=== PATIENT | female | born 1950 | race Caucasian/White ===

== ENCOUNTER → 2016-10-17 | Outpatient (CLI) | payer OTHER ==
--- NOTE | 2016-10-17 17:13 | KCIC ---
PROCEDURE Two-view left hip dated 10/17/2016. HISTORY Left hip pain for 2 months. No known injury. TECHNIQUE Two views obtained. COMPARISON None. FINDINGS Bony alignment is anatomic. No displaced fracture. Moderate hypertrophic change of the left hip joint with joint space narrowing. No destructive changes or periostitis. No loose body. IMPRESSION - No acute radiographic abnormality. - Mild to moderate primary left hip degenerative arthrosis. Electronically signed by: Gilmer Pineda (Oct 17, 2016 17:11:52)
== END | disposition home or self-care (01) ==
LOC: KCIC 15:42
PROVIDERS: ATTEND Family Medicine
DX: M25.552 Pain in left hip (principal)
CPT/HCPCS: 73502

== ENCOUNTER → 2016-11-28 | Outpatient (CLI) | payer OTHER ==
[~2016-11-28] MED LIST: ASPI81TA2 PO; FERR-26 PO; MULT1TAB52 PO
[2016-11-28 09:24] LABS: BASO % 0 % (0-3); EOS % 2 % (0-3); HEMATOCRIT 32.7 % (36.0-47.0); HEMOGLOBIN 10.6 g/dL (12.0-15.5); LYMPH # 1.7 x10^3/uL (1.0-4.8); LYMPH % 38 % (24-48); MEAN CORPUSCULAR HEMOGLOBIN 26 pg (25-35); MEAN CORPUSCULAR HGB CONC 32 g/dL (31-37); MEAN CORPUSCULAR VOLUME 79 fL (79-100); MONO % 10 % (0-9); NEUT % 50 % (31-73); PLATELET COUNT 220 x10^3/uL (140-400); RED BLOOD COUNT 4.16 x10^6/uL (3.50-5.40); WHITE BLOOD COUNT 4.4 x10^3/uL (4.0-11.0)
[2016-11-28 09:32] LABS: ALBUMIN 3.1 g/dL (3.4-5.0); CALCIUM 8.8 mg/dL (8.5-10.1); CREATININE 0.9 mg/dL (0.6-1.0); GFR 62.8; POTASSIUM 4.1 mmol/L (3.5-5.1)
--- NOTE | 2016-11-28 12:49 | EKG ---
[address] [place] [address] Test Date: 2016-11-28 Test Time: 12:46:34 Pat Name: MINDA SMITH Department: Room: Gender: F Curriculum Director: JIM : 1950 Requested By: LINDSAY BROWN Order Number: [id number] Reading MD: Measurements Intervals Russell Rate: 68 P: 24 IN: 128 QRS: 86 QRSD: 82 T: 44 QT: 410 QTc: 436 Interpretive Statements SINUS RHYTHM ATRIAL PREMATURE COMPLEX(ES) R-S TRANSITION ZONE IN V LEADS DISPLACED TO THE LEFT INCOMPLETE RIGHT BUNDLE BRANCH BLOCK OTHERWISE NORMAL ECG RI6.01 Compared to ECG 01/25/2013 11:38:19 Incomplete right bundle-branch block now present Left-axis deviation no longer present
[2016-11-28 13:35] LABS: BILIRUBIN,URINE NEGATIVE (NEG); GLUCOSE,URINE NEGATIVE (NEG); NITRITE,URINE NEGATIVE (NEG); PH,URINE 5.5; PROTEIN,URINE NEGATIVE (NEG-TRACE); UROBILINOGEN,URINE 0.2 mg/dL (0.2 mg/dL)
--- NOTE | 2016-11-28 13:41 | RAD ---
Chest, 2 views, 11/28/2016: History: Preop evaluation for hip surgery Comparison is made to a study from 01/31/2013. The heart size and pulmonary vascularity are normal. There is mild tortuosity of the thoracic aorta. There are calcified granulomata in the left lower chest. There is mild streaky scarring in the lingula region. No acute infiltrate is seen. There is no evidence of pleural fluid. Moderate spurring is present in the lower thoracic spine. Surgical clips are present in the left upper quadrant of the abdomen. IMPRESSION: No acute cardiopulmonary abnormality is detected.
[2016-11-28 14:00] LABS: BACTERIA,URINE 0 /HPF (0-FEW); RBC,URINE OCC /HPF (0-2); SQUAMOUS EPITHELIAL CELL,UR OCC /LPF; WBC,URINE OCC /HPF (0-4)
== END | disposition home or self-care (01) ==
LOC: SURGPAT 15:35
PROVIDERS: ATTEND Orthopaedic Surgery
DX: Z01.818 Encounter for other preprocedural examination (principal); I34.1 Nonrheumatic mitral (valve) prolapse
CPT/HCPCS: 36415; 71020; 80048; 81001; 82040; 85027; 85610; 85651; 85730; 87086; 87641; 93005

== ENCOUNTER 2016-12-13 05:37 | Inpatient (IN) | payer OTHER, MEDICARE ==
[2016-12-13] VITALS (8 sets, daily range): BP systolic 125–147; BP diastolic 74–102
[~2016-12-13] VITALS: Ht 175.3 cm; Wt 102.5 kg
[~2016-12-13 05:37] MED LIST changes: +ASPI-630 PO; -ASPI81TA2 PO
[2016-12-13] MEDS ORDERED: TRANEXAMIC ACID 1,000 MG in IV NS 50ML -- 1ST BAG INJ ONE (06:00)
[2016-12-13] MEDS ORDERED: HYDROcodone/APAP 7.5/325MG 1 TAB TABLET PO PRN (06:00)
[2016-12-13] MEDS ORDERED: MORPHINE SULFATE 5 MG, KETOROLAC TROMETHAMINE 30 MG, ROPIVacaine 0.5% PF 60 ML, EPINEPH... INT ART ONE ×5 (06:00)
[2016-12-13] MEDS ORDERED: CELECOXIB 200 MG CAPSULE. PO PRN (06:00)
[2016-12-13] MEDS ORDERED: LIDOCAINE 1% 1 ML SYRINGE. ID PRN (07:00)
[2016-12-13] MEDS ORDERED: ONDANSETRON PF 4 MG/2 ML VIAL. IV PRN (07:00)
[2016-12-13] MEDS ORDERED: fentaNYL PF VIAL 100 MCG/2 ML VIAL IV PRN ×3 (07:00→08:00)
[2016-12-13] MEDS ORDERED: IV RINGERS,LACTATED 1000ML 1,000 ML IV SCH (07:00)
[2016-12-13] MEDS ORDERED: PROCHLORPERAZINE 10 MG/2 ML VIAL. IV PRN ×2 (07:00→08:00)
[2016-12-13] MEDS ORDERED: HYDROmorphone 2 MG/ML VIAL IV PRN (07:00)
[2016-12-13 07:05] LABS: INR 1.1 (0.8-1.1); PROTHROMBIN TIME PATIENT 13.1 SEC (11.7-14.0)
[2016-12-13] MEDS ORDERED: PROPOFOL 20 ML IV ONE (07:09)
[2016-12-13] MEDS ORDERED: DEXAMETHASONE SOD PHOS 20 MG/5 ML VIAL. ONE (07:10)
[2016-12-13] MEDS ORDERED: ROCURONIUM 50 MG/5 ML VIAL. ONE (07:10)
[2016-12-13] MEDS ORDERED: MIDAZOLAM HCL/PF 2 MG/2 ML VIAL. ONE (07:10)
[2016-12-13] MEDS ORDERED: fentaNYL PF VIAL 100 MCG/2 ML VIAL ONE (07:10)
[2016-12-13] MEDS ORDERED: FAMOTIDINE 20 MG/2 ML VIAL ONE (07:10)
[2016-12-13] MEDS ORDERED: LIDOCAINE 2% PF Vial for OR 5 ML VIAL. ONE (07:10)
[2016-12-13] MEDS ORDERED: ONDANSETRON PF 4 MG/2 ML VIAL. ONE (07:10)
[2016-12-13] MEDS ORDERED: diphenhydrAMINE 50 MG/ML VIAL IV PRN (08:00)
[2016-12-13] MEDS ORDERED: traMADol 50 MG TABLET PO PRN ×2 (08:00)
[2016-12-13] MEDS ORDERED: CALCIUM CARBONATE 500 MG TAB.CHEW PO PRN (08:00)
[2016-12-13] MEDS ORDERED: DEXTROSE 50% 25 GM / 50ML DISP.SYRIN. IV PRN (08:00)
[2016-12-13] MEDS ORDERED: HYDROcodone/APAP 10/325 1 TAB TABLET PO PRN (08:00)
[2016-12-13] MEDS ORDERED: TRANEXAMIC ACID 1,000 MG in IV NS 50ML -- 2ND BAG INJ ONE (08:00)
[2016-12-13] MEDS ORDERED: ZOLPIDEM 5 MG TABLET. PO PRN (08:00)
[2016-12-13] MEDS ORDERED: HYDROmorphone 2 MG/ML VIAL IVP PRN (08:00)
[2016-12-13] MEDS ORDERED: oxyCODONE/APAP 5/325 1 TAB TABLET PO PRN (08:00)
[2016-12-13] MEDS ORDERED: ACETAMINOPHEN 325 MG TABLET. PO PRN (08:00)
[2016-12-13] MEDS ORDERED: oxyCODONE/APAP 7.5/325 1 TAB TABLET PO PRN (08:00)
[2016-12-13] MEDS ORDERED: 0.9 % SODIUM CHLORIDE 10 ML DISP.SYRIN. IV PRN (08:00)
[2016-12-13] MEDS ORDERED: MORPHINE SULFATE 10 MG/ML VIAL. ONE (08:17)
[2016-12-13] MEDS ORDERED: 0.9 % SODIUM CHLORIDE 50 ML VIAL. IJ ONE (08:18)
[2016-12-13] MEDS: MULTIVITAMIN with MINERAL TABLET. PO SCH (09:00)
[2016-12-13] MEDS: ASPIRIN CHEWABLE 81 MG TABLET. PO SCH (09:00)
[2016-12-13] MEDS ORDERED: GLYCOPYRROLATE 1 MG/5 ML VIAL. ONE (09:25)
[2016-12-13] MEDS ORDERED: NEOSTIGMINE METHYLSULFATE 5 MG/5 ML SYRINGE. ONE (09:25)
[2016-12-13] MEDS ORDERED: DESFLURANE > 120 MINUTES IH ONE (09:44)
[2016-12-13] MEDS: SENNOSIDES/DOCUSATE 8.6/50MG TABLET. PO SCH (10:00)
--- NOTE | 2016-12-13 10:03 | PDOC ---
BRIEF OPERATIVE NOTE Date: Dec 13, 2016 Pre-Op Diagnosis djd left hip Post-Op Diagnosis same Procedure Performed left total hip arthroplasty Surgeon Alex Richardson Anesthesia Type: General Blood Loss 500cc Specimens Obtained femoral head to pathology Findings above Complications none LINDSAY BROWN MD Dec 13, 2016 10:03
--- NOTE | 2016-12-13 10:24 | ACF ---
Admission Forms Criteria MUSCULOSKELETAL DISEASE GRG Clinical Indications for Admission to Inpatient Care (Place 'X' for any and all applicable criteria): Hospital admission is needed for appropriate care of the patient because of 1 or more of the following: [ ]I. Fracture, dislocation, or other musculoskeletal injury requiring inpatient care(medical) as indicated by 1 or more of the following(4)(5)(6)(7) [ ]a) Vertebral fracture requiring observation for instability or neurologic compromise (8) [ ]b) Compartment syndrome (proven or cannot be ruled out during observation level of care) (9) [ ]c) Limb-threatening injury [ ]d) Major injury requiring inpatient stabilization such as traction initiation or external fixation before internal fixation or closure of complex or open fracture [ ]e) Major injury requiring inpatient treatment after emergency or observation level care (as appropriate) [ ]f) Severe pain requiring acute inpatient management [ ]g) Injury with suspicion of abuse or neglect (eg., child, dependent elderly) [ ]II. Newly diagnosed or suspected bone, joint, or orthopedic device infection (e.g., osteomyelitis, septic arthritis) needing 1 or more of the following(1)(2)(3) [ ]a) IV antibiotics that cannot be initiated in other than inpatient setting (e.g., patient too unstable or home infusion not available) [ ]b) Device removal or replacement [ ]c) Bone or soft tissue debridement [ ]d) Joint drainage (drain placement or repetitive aspirations) [ ]III. Severe rheumatologic disease (e.g., systemic lupus erythematosus, rheumatoid arthritis) with complications or comorbidities (Also use Optimal Recovery Care Criteria or General Recovery Criteria as appropriate on the basis of predominant condition), including 1 or more of the following( 10)(11)(12)(13) [ ]a) Severe infection (e.g., HVAC SALES REPRESENTATIVE infection, sepsis) (14) [ ]b) Respiratory complications, including 1 or more of the following : [ ]i) Pleural effusion with respiratory compromise [ ]ii) Pulmonary hypertension with congestive failure [ ]iii) Respiratory failure [ ]iv) Pulmonary hemorrhage (15) [ ]c) Hematologic disease, including 1 or more of the following: [ ]i) Coagulopathy with bleeding [ ]ii) Thrombosis with hypercoagulable state [ ]iii) Thrombotic thrombocytopenic purpura [ ]d) Cerebritis with seizures, psychosis, or other severe abnormalities [ ]e) Vertebral destruction with monitoring needed for cervical myelopathy& possible respiratory compromise [ ]f) Exacerbation that requires inpatient treatment (e.g., intravenous immunosuppression) (16) [ ]g) Acute renal failure [ ]h) Cerebritis with seizures, psychosis, Altered mental status, or other neurologic abnormalities [ ]i) Pericardial effusion with tamponade [ ]j) Vertebral destruction, with monitoring needed for cervical myelopathy and possible respiratory compromise [ ]IV. Severe vasculitis with complications or comorbidities (Also use Optimal Recovery Care Criteria General Recovery Criteria as appropriate on the basis of predominant condition), including 1 or more of the following(11)(12)(17)(18)(19)(20) [ ]a) Exacerbation that requires inpatient treatment (e.g., intravenous immunosuppression) (19)(21) [ ]b) Pulmonary hemorrhage (15) [ ]c) HVAC SALES REPRESENTATIVE vasculitis with seizures, psychosis, Altered mental status that is severe or persistent, or other severe abnormalities (22) [ ]d) Cerebral infarction [ ]e) Gastrointestinal ischemia [ ]f) Gangrene or threatened amputation [ ]g) Renal failure (16) [ ]h) Other significant complications of vasculitis ( eg., tissue or organ ischemia, organ dysfunction ) [ ]V. Severe myopathy as indicated by 1 or more of the following (28)(29) [ ]a) New onset of airway compromise or inability to swallow [ ]b) Respiratory deterioration with observation needed for impending respiratory failure [ ]c) Exacerbation that requires inpatient treatment (e.g., intravenous immunosuppression) [ ]. Severe crystal gout (arthropathy) indicated by 1 or more of the following (23)(24) [ ]a) Severe pain requiring acute inpatient management [ ]b) Exacerbation that requires inpatient treatment (e.g., intravenous treatment) [ ]VII.Rhabdomyolysis and 1 or more of the following (25)(26)(27) [ ]a) Acute renal failure [ ]b) Need for intravenous hydration after emergency or observation level care (as appropriate) [ ]c) Inability to maintain oral hydration [ ]d) Change in mental status [ ]e) Electrolyte abnormality that remains after emergency or observation level care (as appropriate) [ ]VIII Post amputation complication, as indicated by ANY ONE of the following [ ]a) Infection [ ]b) Dehiscence [ ]c) Myodesis failure [X]IX. Severe pain requiring acute inpatient management due to musculoskeletal condition [ ]X. Musculoskeletal Disease and ALL of the following: [ ]a) Symptom or finding for which emergency and observation care have failed or are not considered appropriate (Use General Criteria: Observation Care as appropriate) [ ]b) Presence of ANY ONE of the following [ ]i) A General Admission Criteria [ ]ii) A Pediatric General Admission Criteria The original [facility] [employer] content created by [facility] [email or web address] has been revised. The portions of the content which have been revised are identified through the use of italic text or in bold, and [facility] has neither reviewed nor approved the modified material. All other unmodified content is copyright [email or web address]. Please see references footnoted in the original [email or web address] edition 2016 Admission Criteria Met?: Yes RITCHIE ZENG Dec 13, 2016 10:24
[2016-12-13] MEDS: fentaNYL PF VIAL 100 MCG/2 ML VIAL IV PRN ×3 (10:30→11:21)
[2016-12-13] MEDS: MORPHINE SULFATE 2 MG/ML DISP.SYRIN. IV PRN ×2 (10:44→11:06)
--- NOTE | 2016-12-13 11:05 | RAD ---
Pelvis, 12/13/2016: History: Postop evaluation Comparison is made to a study from 10/17/2016. A left total hip prosthesis has been inserted in satisfactory position. There are mild degenerative changes at the right hip joint. A surgical drain is projected over the left hip soft tissues laterally. There is no evidence of a retained surgical instrument, needle or radiopaque sponge.
[2016-12-13] MEDS ORDERED: WARFARIN 7.5 MG TABLET. PO ONE (16:00)
[2016-12-13] MEDS: FERROUS SULFATE 325 MG TABLET. PO SCH ×2 (16:56)
[2016-12-13] MEDS: CELECOXIB 200 MG CAPSULE. PO SCH (20:16)
[2016-12-13] MEDS: IV DEXTROSE 5 %-0.45 % NACL 1,000 ML IV SCH (20:18)
[2016-12-13] MEDS: HYDROcodone/APAP 7.5/325MG 1 TAB TABLET PO PRN (21:17)
[2016-12-14] MEDS: HYDROcodone/APAP 7.5/325MG 1 TAB TABLET PO PRN ×5 (01:41→22:14)
[2016-12-14 02:21] VITALS: BP 137/67
[2016-12-14] MEDS: IV DEXTROSE 5 %-0.45 % NACL 1,000 ML IV SCH (03:47)
[2016-12-14] MEDS ORDERED: MAGNESIUM HYDROXIDE 2,400 MG/30 ML ORAL.SUSP. PO PRN (06:00)
[2016-12-14 06:04] LABS: HEMATOCRIT 25.9 % (36.0-47.0); HEMOGLOBIN 8.2 g/dL (12.0-15.5)
[2016-12-14 06:21] LABS: INR 1.2 (0.8-1.1); PROTHROMBIN TIME PATIENT 14.6 SEC (11.7-14.0)
[2016-12-14 06:27] VITALS: BP 107/64
[2016-12-14] MEDS: FERROUS SULFATE 325 MG TABLET. PO SCH ×3 (08:00→17:06)
[2016-12-14] MEDS: MULTIVITAMIN with MINERAL TABLET. PO SCH (08:42)
[2016-12-14] MEDS: CELECOXIB 200 MG CAPSULE. PO SCH ×2 (08:42→20:30)
[2016-12-14] MEDS: SENNOSIDES/DOCUSATE 8.6/50MG TABLET. PO SCH (08:42)
[2016-12-14] MEDS: ASPIRIN CHEWABLE 81 MG TABLET. PO SCH (08:42)
[2016-12-14] MEDS ORDERED: BISACODYL 10 MG SUPP.RECT. PR PRN (16:00)
[2016-12-14] MEDS ORDERED: WARFARIN 5 MG TABLET. PO ONE (16:00)
--- NOTE | 2016-12-14 19:16 | PDOC ---
PROGRESS NOTES Subjective Subjective Problems overnight: She is doing well ambulating with physical therapy today even better than yesterday and is very pleased with her pain relief and progress Objective Vital Signs Vital Signs Date Time Temp Pulse Resp B/P (MAP) Pulse Ox O2 Delivery O2 Flow Rate FiO2 12/14/16 18:10 16 Room Air 12/14/16 06:27 98.0 67 107/64 (78) 97 98.0 12/13/16 15:15 2.5 Physical Exam Leg lengths equal distal neurovascular status intact dressing clean dry intact drains intact Labs Laboratory Tests Test 12/13/16 06:30 12/14/16 05:35 Prothrombin Time 13.1 SEC (11.7-14.0) 14.6 SEC (11.7-14.0) Prothromb Time International Ratio 1.1 (0.8-1.1) 1.2 (0.8-1.1) Activated Partial Thromboplast Time 33 SEC (24-38) Hemoglobin 8.2 g/dL (12.0-15.5) Hematocrit 25.9 % (36.0-47.0) Mean Corpuscular Hemoglobin Concent 32 g/dL (31-37) Laboratory Tests Test 12/14/16 05:35 Hemoglobin 8.2 g/dL (12.0-15.5) Hematocrit 25.9 % (36.0-47.0) Mean Corpuscular Hemoglobin Concent 32 g/dL (31-37) Prothrombin Time 14.6 SEC (11.7-14.0) Prothromb Time International Ratio 1.2 (0.8-1.1) Imaging Postop x-rays show excellent component positioning leg lengths equal Assessment Assessment POD# [1], S/P [left total hip arthroplasty] Problems: Plan Plan of Care Continue mobilize with physical therapy standard hip precautions Coumadin anticoagulation Planned outpatient physical therapy on discharge LINDSAY BROWN MD Dec 14, 2016 19:16
[2016-12-14 19:20] VITALS: BP 130/75
[2016-12-15 05:14] LABS: HEMATOCRIT 25.7 % (36.0-47.0); HEMOGLOBIN 8.2 g/dL (12.0-15.5)
[2016-12-15 05:20] LABS: INR 1.4 (0.8-1.1); PROTHROMBIN TIME PATIENT 16.4 SEC (11.7-14.0)
[2016-12-15 06:17] VITALS: BP 131/76
[2016-12-15] MEDS: HYDROcodone/APAP 7.5/325MG 1 TAB TABLET PO PRN ×5 (06:24→21:29)
[2016-12-15] MEDS: FERROUS SULFATE 325 MG TABLET. PO SCH ×2 (07:57→17:06)
[2016-12-15] MEDS: SENNOSIDES/DOCUSATE 8.6/50MG TABLET. PO SCH (07:57)
[2016-12-15] MEDS: MULTIVITAMIN with MINERAL TABLET. PO SCH (07:58)
[2016-12-15] MEDS: ASPIRIN CHEWABLE 81 MG TABLET. PO SCH (07:58)
[2016-12-15] MEDS: CELECOXIB 200 MG CAPSULE. PO SCH ×2 (07:58→21:26)
--- NOTE | 2016-12-15 15:37 | PDOC ---
ORTHO PROGRESS NOTES Subjective Patient reports that she is doing well overall. Pain increased today but tolerable. Pain medication is helping. Denies chest pain or shortness of breath. Denies any numbness or tingling. Denies nausea. Tolerating therapy. Anticipates discharge tomorrow Post-op Day: 2 (Left total hip arthroplasty) Vitals Vital Signs Date Time Temp Pulse Resp B/P (MAP) Pulse Ox O2 Delivery O2 Flow Rate FiO2 12/15/16 14:20 Room Air 12/15/16 10:15 20 12/15/16 07:39 96 12/15/16 06:17 98.5 75 131/76 (94) 98.5 Labs Laboratory Tests Test 12/14/16 05:35 12/15/16 04:55 Hemoglobin 8.2 g/dL (12.0-15.5) 8.2 g/dL (12.0-15.5) Hematocrit 25.9 % (36.0-47.0) 25.7 % (36.0-47.0) Mean Corpuscular Hemoglobin Concent 32 g/dL (31-37) 32 g/dL (31-37) Prothrombin Time 14.6 SEC (11.7-14.0) 16.4 SEC (11.7-14.0) Prothromb Time International Ratio 1.2 (0.8-1.1) 1.4 (0.8-1.1) Laboratory Tests Test 12/15/16 04:55 Hemoglobin 8.2 g/dL (12.0-15.5) Hematocrit 25.7 % (36.0-47.0) Mean Corpuscular Hemoglobin Concent 32 g/dL (31-37) Prothrombin Time 16.4 SEC (11.7-14.0) Prothromb Time International Ratio 1.4 (0.8-1.1) Notes Patient is awake and alert sitting up in bed. Breathing unlabored, no acute distress. Incision is covered with dressing, intact. Neurovascular intact left lower extremity Problems: (1) Degenerative joint disease of left hip Assessment and Plan Continue PT OT, weightbearing as tolerated Anticoagulation per pharmacy Pain controlled Anticipate discharge tomorrow Problem Qualifiers (1) Degenerative joint disease of left hip: Osteoarthritis type: primary Qualified Codes: M16.12 - Unilateral primary osteoarthritis, left hip ABHIJIT BANKS TALENT ANALYST Dec 15, 2016 15:37
--- NOTE | 2016-12-15 15:56 | HP ---
ADMIT DATE: 12/13/2016 ORTHOPEDIC PREOPERATIVE HISTORY AND PHYSICAL CHIEF COMPLAINT: Left hip pain and DJD. HISTORY OF PRESENT ILLNESS: The patient has had many years of hip pain, but much worse over the past couple of months. She feels like somebody punched her in the left buttocks, particularly after walking and activity. She cannot cross her legs or put her socks on, which she could do previously. She actually injured herself 2 years ago ____ apparently injured her labrum. It was fixed arthroscopically by Dr. Arana, but really never completely relieved her pain. Two months ago, had a very sudden onset of increased pain as noted above, increasingly limiting her activities of daily living. I have gone over with her the possibility of nonoperative additional management with a cane, which she actually has already used, possibility of injection into the hip. She said she had had that prior to the time of the labrum; it really did not give relief and she is so severely limited in her activities of daily living at this point that she does want to proceed with surgery as noted in our previous clinic visit. PAST MEDICAL HISTORY: Significant for mitral valve prolapse, hypertension, COPD, and BMI in the 32 range. PAST SURGICAL HISTORY: Significant for tonsillectomy and adenoidectomy, appendectomy, cholecystectomy, hysterectomy, fracture of the left arm, gastric surgery and Tashi-en-Y bypass, finger fracture repair and labrum surgery as previously mentioned as well as debridement of the right thigh from a spider bite in 03/2016, now resolved. FAMILY HISTORY: Significant for Alzheimer's in her mother, who is ; heart disease in her father; and cancer in her family as well. MEDICATIONS: List is reviewed. ALLERGIES: She has no known drug allergies. REVIEW OF SYSTEMS: Denies any fever, chills, chest pain, or shortness of breath. Respiratory issues at baseline. Denies any numbness, tingling. Significant for the left groin pain radiating somewhat into the upper thigh, but not really down past the knee. PHYSICAL EXAMINATION: VITAL SIGNS: Per admission sheet. HEENT: Atraumatic, normocephalic. HEART: Regular rate and rhythm. LUNGS: Clear to auscultation bilaterally. ABDOMEN: Benign, obese. EXTREMITIES: Examination of the left hip reveals tenderness on any extremes of range of motion, very limited range of motion as well. Negative straight leg raise. Normal examination of the contralateral hip, bilateral knees and ankles with overall intact motor function, distal pulses, sensation, reflexes, skin in both lower extremities throughout. IMAGING: X-rays showed degenerative joint disease of the left hip. IMPRESSION: ____ hip degenerative joint disease. TREATMENT PLAN: We had previously talked through operative and nonoperative treatment options, risks, benefits, postoperative course of the surgery including the possibility of leg length inequality, nerve or blood vessel damage, instability, infection, premature wear or loosening, medical or other anesthetic complications among others. All her questions were answered. Consent was obtained and she agrees to proceed with operative evaluation and treatment, which will occur today with [facility] admission to follow. LINDSAY BROWN MD DR: KATIA/nts JOB#: [id number] / [id number] MINDA Garcia MD
[2016-12-15] MEDS ORDERED: WARFARIN 5 MG TABLET. PO ONE (16:00)
--- NOTE | 2016-12-15 16:07 | OP ---
DATE OF SURGERY: 12/13/2016 PREOPERATIVE DIAGNOSIS: Degenerative joint disease of left hip. POSTOPERATIVE DIAGNOSIS: Degenerative joint disease of left hip. PROCEDURE: Left total hip arthroplasty. SURGEON: Vasile Johnson M.D. ANESTHESIA: General. ESTIMATED BLOOD LOSS: 250 mL. COMPLICATIONS: None. OPERATIVE INDICATIONS: The patient is a 66-year-old female with pain with ambulation in the left hip and groin area, antalgic gait, and unresponsive to nonoperative treatment. I had previously gone over the risks, benefits, and postoperative course with the patient including the possibility of premature wear or loosening, nerve or blood vessel damage, medical or other anesthetic complications, and leg length discrepancy among others. All of her questions were answered. Consent was obtained, and she agrees to proceed with surgical evaluation and treatment. DESCRIPTION OF PROCEDURE: The patient was identified, procedure verified, patient placed in the supine position on the operating table. After adequate amounts of general endotracheal anesthesia were administered, she was placed in decubitus left side up. All bony prominences were well padded using the Stulberg hip positioner, and the tip was prepped and draped in the standard sterile fashion. After timeout was performed, the patient and procedure identified and verified, standard posterior approach was used to the hip and curvilinear incision centered over the greater trochanter, the iliotibial band and gluteal fascia were divided in line with their fibers. External rotators were divided from their insertion. Hip capsule was split in a T fashion. The leg length and offset were measured from a pelvic reference pin which was set aside. The hip was then dislocated. Femoral neck cut was made using a reference broach using the Avenir Gualberto system. Acetabulum was exposed, and the contents of the fovea and labrum were excised sharply and cauterized. Successive size reaming was carried up to a size 54, and a size 56 Continuum acetabular trabecular metal shell was placed in proper inclination version and fixed with a single superior screw with excellent fixation. Trial standard liner was then placed. The femur was then exposed, and successive size reaming was carried out and broaching up to a size 8 Avenir broach which was then trial fit with a -3.5 length to reproduce her offset exactly and leg length increased about 3 mm as desired to replace the worn-out cartilage. Excellent stability was obtained to about 60 degrees internal rotation at 90 degrees hip flexion, and the trial components were then removed. A standard vitamin E liner was impacted in place. Size 8 standard stem uncemented Avenir Bey Gualberto stem was implanted and impacted. A -3.5 ceramic head was impacted to engage the Craven taper and reduced again with equivalent leg length and offset measurement as previously indicated. Thorough irrigation was carried out with normal saline solution. The hip capsule was repaired with #5 Ethibond suture. The external rotators were attached transosseously with #5 Ethibond as well. Hemovac drain and pain catheter were placed. The pain catheter mixture was injected into the capsule and surrounding tissues. The fascia was closed with #1 Vicryl suture, subcutaneous closure in layered detailed fashion with buried Vicryl suture, and skin closure with subcuticular Monocryl. Sterile dressings were applied. The patient was returned to Recovery Room in stable condition having tolerated the procedure well. Please note Shruthi Richardson, first-assist, was present for the prepping, draping, and assisted through the procedure as well as the subcuticular closure. VASILE JOHNSON MD DR: KATIA/marialuisa JOB#: [id number] / [id number] MINDA Garcia MD
[2016-12-15 17:32] VITALS: BP 150/84
[2016-12-16 05:38] LABS: HEMATOCRIT 25.4 % (36.0-47.0); HEMOGLOBIN 8.1 g/dL (12.0-15.5)
[2016-12-16 05:50] LABS: INR 1.5 (0.8-1.1); PROTHROMBIN TIME PATIENT 16.9 SEC (11.7-14.0)
[2016-12-16 06:00] VITALS: BP 139/76
[2016-12-16] MEDS: HYDROcodone/APAP 7.5/325MG 1 TAB TABLET PO PRN ×2 (08:09→12:24)
[2016-12-16] MEDS: SENNOSIDES/DOCUSATE 8.6/50MG TABLET. PO SCH (08:09)
[2016-12-16] MEDS: FERROUS SULFATE 325 MG TABLET. PO SCH (08:09)
[2016-12-16] MEDS: MULTIVITAMIN with MINERAL TABLET. PO SCH (08:09)
[2016-12-16] MEDS: CELECOXIB 200 MG CAPSULE. PO SCH (08:09)
[2016-12-16] MEDS: ASPIRIN CHEWABLE 81 MG TABLET. PO SCH (08:09)
[2016-12-16 11:15] VITALS: BP 140/91
--- NOTE | 2016-12-16 13:37 | PATHOLOGY ---
PATHOLOGY REPORT * * * * * * * * FINAL DIAGNOSIS: Femoral head and separate segments of synovial and fibrocartilaginous tissue, left total hip arthroplasty: - Degenerative arthritis. - Mild papillary chronic synovitis. REPORT ELECTRONICALLY SIGNED BY: Cristopher Mota M.D. DATE/TIME: 12/16/2016 13:37 * * * * * * * * GROSS PATHOLOGY: The specimen is received in formalin, labeled "Elfego-left hip bone and tissue" is a femoral head which measures 4.9 x 4.9 x 3.5 cm with attached femoral neck which measures 1.1 cm in length by up to 3.5 cm in diameter. The articular surface of the specimen is harrison-brown and smooth with focal areas of peripheral eburnation. Sectioning through the specimen reveals a yellow-harrison, hard trabeculated cut surface and an articular surface ranging in thickness from 0.1 up to 0.3 cm. Also received in the container is a 4.5 x 4.2 x 2.0 cm aggregate of reddish brown irregular fragments of soft tissue. Die Machine Operator sections of bone and soft tissue are submitted in cassette A1 following decalcification. (AKA; 12/15/2016) INITIAL CPT CODE(S): A; 58146, 22028 Professional services performed by [facility] [place] [address] Technical services performed by [facility] at [address] [place] [address], [facility] [address], [place] [address]. SPECIMEN(S) RECEIVED: A.Left hip bone and tissue CLINICAL HISTORY: OA PATIENT: MINDA SMITH /AGE: 1 1950 (Age: 66) PATIENT #: [id number] ALT CASE #: SPECIMEN COLLECTION DATE: 12/13/2016 SPECIMEN RECEIVED DATE: 12/13/2016 [facility] - [id number] [place] [address] - PHONE: [phone] * * * END OF REPORT * * *
[2016-12-16] MEDS ORDERED: WARFARIN 6 MG TABLET. PO ONE (14:00)
[2016-12-16] MEDS ORDERED: CELE200C PO (14:23)
[2016-12-16] MEDS ORDERED: HYDR-2762 PO (14:24)
[2016-12-16] MEDS ORDERED: WARF6TAB49 PO (14:25)
== END 2016-12-16 15:00 | disposition home or self-care (01) | DRG 470 ==
LOC: OPSVCIP 05:37 → 4 SOUTHEST 11:52
PROVIDERS: ADMIT Orthopaedic Surgery; ATTEND Orthopaedic Surgery
PROC: 0SRB03A Replacement of Left Hip Joint with Ceramic Synthetic Substitute, Uncemented, Open Approach (ICD-10-PCS; principal; 2016-12-13 07:30)
DX: M16.12 Unilateral primary osteoarthritis, left hip (principal); I10 Essential (primary) hypertension; I34.1 Nonrheumatic mitral (valve) prolapse; J44.9 Chronic obstructive pulmonary disease, unspecified; Z82.0 Family history of epilepsy and other diseases of the nervous system; Z90.49 Acquired absence of other specified parts of digestive tract
CPT/HCPCS: 36415; 72170; 85014; 85018; 85610; 85730; 86850; 86900; 86901; J0171; J0690; J1100; J1885; J2250; J2270; J2405; J2704; J2710; J2795; J3010; J3490; J7030; J7120; S0028; 97116; 97150; 97530; 97535

== ENCOUNTER → 2017-03-21 | Outpatient (CLI) | payer MEDICARE, OTHER ==
[~2017-03-21] MED LIST changes: +CELE200C PO; +HYDR-2762 PO; +WARF6TAB49 PO
--- NOTE | 2017-03-21 11:00 | CARD ---
APPROVED REPORT EXAM: Two-dimensional and M-mode echocardiogram with Doppler and color Doppler. Other Information Quality : Average Rhythm : NSR INDICATION Mitral Valve Disease 2D DIMENSIONS RVDd3.5 (2.9-3.5cm)Left Atrium(2D)4.1 (1.6-4.0cm) IVSd1.1 (0.7-1.1cm)Aortic Root(2D)2.9 (2.0-3.7cm) LVDd4.8 (3.9-5.9cm)LVOT Diameter2.0 (1.8-2.4cm) PWd1.1 (0.7-1.1cm)LVDs3.0 (2.5-4.0cm) FS (%) 33.8 %SV71.7 ml LVEF(%)64.5 (>50%) Aortic Valve AoV Peak Alberto.140.6cm/sAoV VTI30.5cm AO Peak GR.7.9mmHgLVOT Peak Alberto.145.4cm/s LVOT VTI 31.22cmAO Mean GR.4mmHg RADHA (VMAX)3.40qp5GEC (VTI)3.33cm2 AI P 1/2 Shtl908zs Mitral Valve MV E Jzixznzo73.5cm/sMV DECEL LGHR997pp MV A Eyskflgf47.9cm/sMV GLP03td E/A Ratio0.9MV A Ampdwyvj350bc MVA (PHT)3.39cm2 TDI E/Lateral E'8.1E/Medial E'10.7 Pulmonary Valve PV Peak Dapqknyn668.7cm/sPV Peak Grad.4mmHg RVOT VTI19.0cm Tricuspid Valve TR P. Oywhwyui917cn/sRAP DYSSWNEU0rdIg TR Peak Gr.17jqJzLRMO56qqKr Pulmonary Vein S1 Kmfneenf52.0cm/sD2 Mlwfnacf70.7cm/s LEFT VENTRICLE The left ventricle is normal size. There is normal left ventricular wall thickness. Left ventricle sy stolic function is normal. The Ejection Fraction is 60-65%. There is normal LV segmental wall motion. The left ventricular diastolic function and filling is normal for age. There is no ventricular septa l defect visualized. RIGHT VENTRICLE The right ventricle is normal size. The right ventricular systolic function is normal. ATRIA The left atrium is borderline dilated. The right atrium size is normal. The interatrial septum is int act with no evidence for an atrial septal defect or patent foramen ovale as noted on 2-D or Doppler i maging. AORTIC VALVE The aortic valve is normal in structure and function. The aortic valve is trileaflet. Doppler and Col or Flow revealed trace aortic regurgitation. There is no significant aortic valvular stenosis. MITRAL VALVE The mitral valve leaflets are thickened. There is no mitral valve stenosis. Doppler and Color Flow re vealed mild mitral regurgitation. TRICUSPID VALVE The tricuspid valve is normal in structure and function. Doppler and Color Flow revealed trace to mil d tricuspid regurgitation. The PA pressure was estimated at 29 mmHg. There is no tricuspid valve sten osis. PULMONIC VALVE The pulmonic valve is not well visualized. Doppler and Color Flow revealed trace pulmonic valvular re gurgitation. There is no pulmonic valvular stenosis. GREAT VESSELS The aortic root is normal in size. The ascending aorta is dilated measuring 3.8 cm. Normal pulmonary venous flow (Doppler). The IVC is normal in size and collapses >50% with inspiration. PERICARDIAL EFFUSION There is no evidence of significant pericardial effusion. Critical Notification Critical Value: No <Conclusion> Left ventricle systolic function is normal. The Ejection Fraction is 60-65%. There is normal LV segmental wall motion. Trace aortic regurgitation. Mild mitral regurgitation. Trace to mild tricuspid regurgitation. The PA pressure was estimated at 29 mmHg. There is no evidence of significant pericardial effusion.
== END | disposition home or self-care (01) ==
LOC: ECHO 09:38
PROVIDERS: ATTEND Internal Medicine Cardiovascular Disease
DX: I08.1 Rheumatic disorders of both mitral and tricuspid valves (principal); I31.3 Pericardial effusion (noninflammatory)
CPT/HCPCS: 93306